=== PATIENT | female | born 1960 | race Caucasian/White ===

== ENCOUNTER 2016-11-04 11:59 | Emergency (ER) | payer OTHER ==
[~2016-11-04] VITALS: Ht 157.5 cm; Wt 62.6 kg
[2016-11-04] MEDS ORDERED: SODIUM CHLORIDE 0.9% 1,000 ML IV ONE (12:24)
[2016-11-04] MEDS ORDERED: FAMOTIDINE 20 MG/2 ML IVP ONE (12:30)
[2016-11-04] MEDS ORDERED: ONDANSETRON 2MG/ML, 2ML IVPush ONE (12:30)
[2016-11-04] MEDS ORDERED: ONDANSETRON ODT 4 MG ONE (12:31)
[2016-11-04] MEDS ORDERED: ONDANSETRON 2MG/ML, 2ML ONE (12:51)
[2016-11-04] MEDS ORDERED: FAMOTIDINE 20 MG/2 ML ONE (12:51)
[2016-11-04 13:14] LABS: BLOOD UREA NITROGEN 21 mg/dL (7-18)
[2016-11-04 13:18] LABS: ASPARTATE AMINO TRANSFERASE 19 U/L (15-37)
[2016-11-04 14:50] VITALS: BP 136/69
== END 2016-11-04 15:05 | disposition home or self-care (01) ==
LOC: ED 14:46
DX: N13.30 Unspecified hydronephrosis (principal); R10.11 Right upper quadrant pain; Z90.710 Acquired absence of both cervix and uterus
CPT/HCPCS: 36415; 74000; 76700; 76770; 80053; 81003; 83605; 83690; 85025; 96361; 96374; 96375; 99285; J2405; J7030; S0028

== ENCOUNTER → 2017-06-14 | Outpatient (CLI) | payer OTHER ==
[~2017-06-14] MED LIST: OMNIPAQUE 350 MG/ML, 100ML BOTTLE ONE
== END | disposition home or self-care (01) ==
LOC: CFH 12:11
PROVIDERS: ATTEND Internal Medicine Hematology & Oncology
DX: C50.912 Malignant neoplasm of unspecified site of left female breast (principal); I72.8 Aneurysm of other specified arteries
CPT/HCPCS: 74177; Q9967